=== PATIENT | male | born 1975 | race Caucasian/White ===

== ENCOUNTER → 2016-06-11 | Outpatient (CLI) | payer OTHER ==
[2016-06-11 08:54] LABS: BLOOD UREA NITROGEN 10 mg/dL (7-22); CALCIUM 10.1 mg/dL (8.7-10.7); CHOL/HDL RATIO 7.06 RATIO (0-4.0); EST GLOMERULAR FILTRATION > 60 (>60 ml/min/1.73m(2)); HDL CHOLESTEROL 31 mg/dL (40-150); SERUM ALBUMIN 4.5 g/dL (3.5-4.8); SERUM CHOLESTEROL 219 mg/dL (120-200)
== END ==
LOC: LAB 07:55
PROVIDERS: ATTEND Specialist
DX: I25.119 Atherosclerotic heart disease of native coronary artery with unspecified angina pectoris (principal); E78.2 Mixed hyperlipidemia
CPT/HCPCS: 80053; 80061

== ENCOUNTER → 2016-08-20 | Day surgery (SDC) | payer OTHER ==
[~2016-08-20] MED LIST: LIDOCAINE 2% VISCOUS(20 MG/1 ML) - 15 ML UD CUP PO ONE; LIDOCAINE W/ SODIUM BICARB 0.5 ML SYR ONE; Lactated Ringers 1,000 ML PRIMARY IV ONE
[2016-08-20 08:02] VITALS: RESP 16
--- NOTE | 2016-08-20 08:38 | GEN.OPNOTE ---
EGD Operative Note Surgery Date: 08/20/16 Preoperative Diagnosis: Chronic GERD. Dysphagia. Postoperative Diagnosis: Chronic GERD. Dysphagia. Distal esophageal inflammation and ulceration. Procedure: Esophagogastroduodenoscopy with biopsy. Surgeon: Eloy Mondragon MD Anesthesia Provider: Maryanne Lindsay CRNA Anesthesia Type: MAC Indications: Patient with chronic reflux and dysphagia. Proceed with upper endoscopy with biopsies and possible dilation. Findings: Esophagus: [Normal] GE Junction : [Inflammatory changes and ulceration] Fundus : [Normal] Body : [Normal] Prepyloric : [Mild erythema] Small Intestine : [Normal] A lubricated flexible upper endoscope was inserted and passed through the esophagus and stomach into the duodenum. The duodenum and duodenal bulb were unremarkable. The pyloric channel was patent. There is some erythema in the antrum. Antral biopsies were taken. Hemostasis was assured. The scope was retroflexed. The remainder of the gastric mucosa was unremarkable. The scope was straightened. Air was aspirated. The scope was withdrawn to the distal esophagus. The Z line was irregular with inflammatory changes. There is an ulceration above the Z line. Multiple biopsies were taken. Hemostasis was assured. The scope was withdrawn and replaced visualizing the entire esophagus. There were no strictures. Nothing needed dilation. I believe his dysphagia is all secondary to GE junction inflammation. The scope was brought through the hypopharynx under suction completing the procedure. The patient tolerated the procedure well without complication. He was taken to outpatient surgery in stable condition. We will call the biopsy results when available. We'll start patient on pantoprazole 40 mg by mouth daily in the interval. Estimated Blood Loss (mL): 2 Fluids: 800 mL of crystalloid. Pathology: Antral and distal esophageal biopsies. Complications: None.
[2016-08-20 09:16] VITALS: TEMP 97.2
== END ==
LOC: SDSC 07:15
PROVIDERS: ATTEND Surgery
DX: R13.10 Dysphagia, unspecified (principal); K21.9 Gastro-esophageal reflux disease without esophagitis; K22.10 Ulcer of esophagus without bleeding
CPT/HCPCS: 43239; J2704; J7120

== ENCOUNTER 2017-07-01 10:50 | Observation (INO) ==
[2017-07-01] MEDS ORDERED: ASPIRIN 81 MG (BABY) CHEWABLE TABLET PO ONE (10:54)
[2017-07-01] MEDS ORDERED: Sodium Chloride 0.9% 1,000 ML PRIMARY IV ONE (10:54)
--- NOTE | 2017-07-01 10:55 | PDOC ---
Chest Pain HPI - General Chief Complaint: Chest Pain Stated Complaint: chest pain Date Seen by Provider: 07/01/17 Time Seen by Provider: 10:50 Source: Patient Exam Limitations: POSITIVE: No limitations Treatment Prior to Arrival: REPORTS: None Nurse's Notes Reviewed & Considered: Yes - History of Present Illness Initial Comments: The patient is a 42-year-old male who presents to the emergency department with chest pain. 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 He is rating his pain currently about a 6 out of 10. He has some associated lightheadedness however denies increasing shortness of breath, nausea or vomiting or palpitation. He does have a known history of coronary artery disease and had a stent placed in the LAD in 2010. 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 He continues to smoke approximately half a pack of cigarettes per day. He is also treated for hypertension and hyperlipidemia. - Patient Home Medications Home Medications: Home Medications Aspirin 81 mg PO DAILY tab 07/10/15 Amlodipine Besylate 1 tab PO DAILY #30 tab 08/07/16 Atorvastatin Calcium [Lipitor] 1 tab PO QHS #30 tab 08/07/16 Bupropion HCl [Wellbutrin Xl] 1 tab PO DAILY #30 tab 08/07/16 Fenofibrate [Tricor] 145 mg PO DAILY #30 tab 08/07/16 Krill/Om-3/Dha/Epa/Phospho/Ast [Megared Boyd-3 Krill Oil Sfgl] 1 ea PO QD #30 cap 08/07/16 Lisinopril/Hydrochlorothiazide [Lisinopril-Hctz 10-12.5 Mg Tab] 1 tab PO DAILY # 30 tab 08/07/16 Nebivolol HCl [Bystolic] 5 mg PO DAILY #30 tab 08/07/16 Nitroglycerin 0.4 mg SL PRN #25 tab 08/07/16 Pantoprazole Sodium 40 mg PO DAILY #90 tab 08/20/16 - Patient Allergies Allergies/Adverse Reactions: Allergies 3 Allergy/AdvReac Type Severity Reaction Status Date / Time diazepam [From Valium] AdvReac Intermediate Rash Verified 07/01/17 11:04 Past Medical History - heen HEENT History: Denies History Cardiovascular History: Hypertension, Previous MD, Hyperlipidemia Respiratory History: Sleep Apnea Gastrointestinal History: GERD, Other (please comment) Additional Gastrointestinal History: double hernia repair. appy Genitourinary History: Denies History Endocrine History: Denies History Musculoskeletal History: Back Pain Prosthesis or Implant: No (STENT) Neurological History: Denies History Blood Disorders: Denies History Psychiatric History: Depression History of Sexually Transmitted Diseases: No Cancer History: Denies History History of MDRO: No Alcohol Use: None In the Past 12 Months, Have Used or Abuse Any Substance: None Previous Surgical History: Yes Type / Date of Surgery: CORONARY STENT 2010/ CORONARY ANGIOGRAM 07/02. Double hernia repair. appy Anesthesia Reactions: No Malignant Hyperthermia: No Significant Family History: Heart disease, COPD, Hypertension Past Medical History Reviewed: Reviewed - No Changes ROS - Limitations ROS Limitations: No Limitations Constitution: DENIES: Chills, Fever Cardiovascular: REPORTS: Chest Pain. DENIES: Heart Racing, Heart Palpitations, Edema Respiratory: DENIES: Shortness Of Breath Neurological: REPORTS: Dizziness. DENIES: Numbness, Fainting, Weakness Gastrointestinal: DENIES: Nausea, Vomitting Endocrine: REPORTS: Fatigue Musculoskeletal: REPORTS: Denies MS Symptoms. DENIES: Lower Extremity Swelling Eyes: REPORTS: Denies Symptoms ENT: REPORTS: Denies Symptoms Skin: DENIES: Rash Chest Pain PE - General Appearance General Appearance: REPORTS: Alert, Cooperative, No Acute Distress - HEENT HEENT: POSITIVE: Head Inspection Nml, Eyes Inspection Nml, Ears Inspection Nml, Nose Inspection Nml, Oral/Dental Inspect. Nml - Neck Neck: REPORTS: Normal Inspection - Respiratory Respiratory: REPORTS: No Respiratory Distress, Breath Sounds Normal - Cardiovascular Cardiovascular: REPORTS: Regular Rate and Rhythm, Heart Sounds Normal - Abdomen Abdomen: Soft: (All Quadrants), Denies Tenderness: (All Quadrants), No Distention: (All Quadrants) - Skin Skin: REPORTS: Intact, No Rash - Extremities Extremity: Normal ROM: (All Extremities), Normal Inspection: (All Extremities) - Neurological / Psychological Neurological: POSITIVE: Oriented X3, Motor Normal, Sensation Normal Chest Pain Progress - Results Reviewed by me Xrays/CTs/US Reviewed by me: Yes Radiology Findings: Chest x-ray shows normal heart size and normal lung shah. Lab Results Reviewed by Me: Yes CBC and BMP: 07/01/17 11:00 07/01/17 11:00 EKG Interpretation:: POSITIVE: Normal Sinus Rhythm, Normal Rate, Normal QRS, Normal ST/T - Patient's Progress MDM / ED Course: EKG done shortly after arrival shows normal sinus rhythm with no acute ST segment or T-wave changes. Vital signs are unremarkable on arrival. His pain on arrival was approximately 6 out of 10. He did receive aspirin per chest pain protocol as well as sublingual nitroglycerin. After 3 doses of sublingual nitroglycerin his pain had come down to about a 4. He had headache from the nitroglycerin. He was given Tylenol thousand milligrams by mouth as well as Ativan 1 mg IV. He had some further improvement in pain and was feeling better. His initial blood work shows a normal d-dimer, normal troponin, chest x -ray is normal. The patient does have a known history of coronary artery disease as well as multiple risk factors including continuation of smoking. The patient is discussed with Dr. Rodriguez and he has agreed to admit the patient for further evaluation. - Consult Counseled: POSITIVE: Patient, Family, RE: Lab Results, RE: Radiology Results, RE : DX Patient Care Time - Estimated PCT Patient Care Time (In Minutes): 25 Vital Signs - Recent Vital Signs Vital Signs: Vital Signs (Last 8 hours) Temp Pulse Pulse Resp BP Pulse Ox 07/01/17 10:51 98.4 F 80 80 18 139/99 92 - VS Reviewed Vital Signs Reviewed: Yes Discharge Clinical Impression: Chest pain Discharge Disposition: Admit to Observation Condition: Fair Follow Up With: ANGELLA PRASAD [Primary Care Provider] -
--- NOTE | 2017-07-01 10:56 | EKG ---
[address] [address] Measurements Intervals [place] Rate: 78 P: 37 MI: 196 QRS: 71 QRSD: 98 T: 59 QT: 379 QTc: 412 Interpretive Statements SINUS RHYTHM Compared to ECG 01/15/2016 10:47:28 No significant changes Electronically Signed On 07-01-17 13:47:27 MDT by Delfino Carlos [email or web address]
[2017-07-01] MEDS: NITROGLYCERIN 0.4 MG SL TAB (BOTTLE OF 3) SL PRN ×3 (10:58→11:09)
[2017-07-01 11:04] LABS: BASOPHILS # (AUTO) 0.05 10*3/UL; BASOPHILS % (AUTO) 0.8 % (0-1); EOSINOPHILS # (AUTO) 0.25 10*3/UL; Hematocrit [HCT] 49.2 % (42.0-52.0); LYMPHOCYTES # (AUTO) 1.72 10*3/uL; MEAN CORPUSCULAR HEMOGLOBIN 30.4 PG (27-31); MEAN CORPUSCULAR HGB CONC 34.6 g/dL (33-37); MEAN PLATELET VOLUME 11.1 FL (7.4-12.2); MONOCYTES # (AUTO) 0.49 10*3/UL (0.3-0.8); MONOCYTES % (AUTO) 7.8 % (5-15); NEUTROPHILS # (AUTO) 3.73 10*3/UL; NEUTROPHILS % (AUTO) 59.3 % (50-80); RED BLOOD COUNT 5.59 10^6/uL (4.70-6.10)
[2017-07-01 11:07] LABS: PLATELET MORPHOLOGY COMMENT NORMAL MORPHOLOGY (NORM); RBC MORPHOLOGY COMMENT NORMAL MORPHOLOGY (NORM); WBC MORPHOLOGY COMMENT NORMAL MORPHOLOGY (NORM)
[2017-07-01] MEDS ORDERED: ACETAMINOPHEN 500 MG TABLET PO ONE (11:11)
[2017-07-01] MEDS ORDERED: LORazepam 2 MG/1 ML VIAL IVP ONE (11:12)
[2017-07-01 11:20] LABS: BLOOD UREA NITROGEN 11 mg/dL (7-22); BUN/CREATININE RATIO 13.75 (6-20); LIPASE 67 IU/L (23-300); SERUM ALBUMIN 4.8 g/dL (3.5-4.8)
--- NOTE | 2017-07-01 11:43 | DI ---
AP CHEST X-RAY, 07/01/2017 10:54 AM : Clinical History: Chest pain. Previous Exam: 11/26/2015. There is no acute soft tissue or bony abnormality. Heart size is normal. There is no acute infiltrate or effusion. There is some discoid atelectasis in the left costophrenic angle. Mediastinal structure s are normal. There are no pulmonary nodules. Reading: Normal chest x-ray. There has been no significant interval change.
--- NOTE | 2017-07-01 12:05 | PDOC ---
HPI - History of Present Illness Date of Service: 07/01/17 Time of Service: 13:00 Chief Complaint: Chest pain that happened today History of Present Illness: This is a 42 years old male with medical history significant for history of coronary artery disease with previous NC in 2010 with previous LAD stent, hypertension, hypercholesterolemia and depression who came into the hospital because of chest pain. 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 He said he didn't have his nitroglycerin with him in. because of the pain he came into the ER. He rated his pain said was 6 out of 10 initially. He came into the ER was given nitroglycerin, aspirin addition to Ativan and that helped the pain. He was admitted for further investigations. Currently he is denying chest pain. He said the last time he took any of his medication was a week ago. There is no clear explanation for why he is not taking his medicines but he said he forgets. He was down in [place] helping his sister he said he probably would take his medication every other day. Past Medical History Medical History: 1. Coronary artery disease with previous NC in 2010 had stents to the LAD. 2. Hypertension. 3. Hyperlipidemia. 4. Depression. 5. Had angiogram June 2016 which showed the patent proximal to mid left anterior descending coronary artery stents with no significant restenosis. No significant other coronary artery abnormalities. Only a borderline 60% ostial to proximal stenosis observed in a small to moderate diagonal branch which is doing for medical management. 6. A nuclear stress test was done in November of 2015, showed normal left ventricular chamber size with an ejection fraction of 66-70%. There were fixed defects in the anteroapical and septal basilar segment with normal wall motion in those areas and dense coronary calcification in the proximal half of the left anterior descending coronary artery. Surgical History: 1. History of bilateral hernia surgery. 2. Appendectomy Pertinent Family History: Family history of coronary artery disease in his grandparents Past Social History: He continued to smoke he said probably 5 cigarettes a day he started smoking at age 18, doesn't drink nor drugs. Lives with his mom in [place]. He said he was down in [facility] helping his sister for about 10 months. He wasn't taking his medication as prescribed maybe every other day. He said he forgets to take his pills. Tobacco Use: Current Every Day Smoker In the Past 12 Months, Have Used or Abuse Any of the Following Substance: None Alcohol Use: None Medication / Allergies Home Medications: Home Medications 3 Medication Instructions Recorded Confirmed Type Aspirin 81 mg PO DAILY tab 07/10/15 07/01/17 History Amlodipine Besylate 1 tab PO DAILY #30 tab 08/07/16 07/01/17 Rx Atorvastatin Calcium [Lipitor] 1 tab PO QHS #30 tab 08/07/16 07/01/17 Rx Bupropion HCl [Wellbutrin Xl] 1 tab PO DAILY #30 tab 08/07/16 07/01/17 Rx Fenofibrate [Tricor] 145 mg PO DAILY #30 tab 08/07/16 07/01/17 Rx Krill/Om-3/Dha/Epa/Phospho/Ast 1 ea PO QD #30 cap 08/07/16 07/01/17 Rx [Megared Ransom-3 Krill Oil Sfgl] Lisinopril/Hydrochlorothiazide 1 tab PO DAILY #30 tab 08/07/16 07/01/17 Rx [Lisinopril-Hctz 10-12.5 Mg Tab] Nebivolol HCl [Bystolic] 5 mg PO DAILY #30 tab 08/07/16 07/01/17 Rx Nitroglycerin 0.4 mg SL PRN #25 tab 08/07/16 07/01/17 Rx Pantoprazole Sodium 40 mg PO DAILY #90 tab 08/20/16 07/01/17 Rx Allergies/Adverse Reactions: Allergies 3 Allergy/AdvReac Type Severity Reaction Status Date / Time diazepam [From Valium] AdvReac Intermediate Rash Verified 07/01/17 11:04 Review of Systems - Review of Systems All Systems: Reviewed & No Additional Complaints Except as Stated Exam - Vitals Vital Signs: Vital Signs Temperature 98.4 F Temperature Source Temporal Artery Scan Pulse Rate [Telemetry] 80 Pulse Rate 80 Respiratory Rate 7 Blood Pressure [Right Arm] 139/99 Blood Pressure 117/85 Pulse Ox 92 Oxygen Delivery Method Room Air Height 5 ft 9 in Weight 203 lb - General General Appearance: No Acute Distress, Cooperative Additional General Exam Details: slow to respond to questions - Head Head Exam: Normal Inspection - Eye Eye Exam: POSITIVE: Normal Appearance - ENT ENT Exam: POSITIVE: Normal Exam - Neck Neck Exam: Normal Inspection - Respiratory Respiratory Exam: POSITIVE: Clear to Auscultation - Bilaterally - Cardiovascular Cardiovascular Exam: POSITIVE: RRR - GI/Abdominal GI/Abdominal Exam: POSITIVE: Normal Bowel Sounds, Non Tender, Non Distended, Soft, No Organomegaly - Rectal Rectal Exam: POSITIVE: Deferred - External Exam: POSITIVE: Deferred Exam: POSITIVE: Deferred - Extremities Extremities Exam: POSITIVE: Normal Inspection - Back Back Exam: POSITIVE: Normal Inspection - Neurological Neurological Exam: POSITIVE: Alert, Oriented x 3, CN II-XII Intact, Speech Intact / Clear, Moves All Extremities Equally - Psychiatric Psychiatric Exam: POSITIVE: Flat Affect - Integumentary Integumentary Exam: POSITIVE: Normal Color Results - Labs CBC and BMP: 07/01/17 11:00 07/01/17 11:00 - EKG Data -: EKG Interpreted by Me Rate: Normal EKG Shows Normal: Sinus Rhythm (EKG does not show significant EKG changes) - Imaging Status: Report Reviewed by Me (chest x ray Normal chest x-ray. There has been no significant interval change.) Assessment and Plan - Patient Problems (1) Chest pain Current Visit: Yes Status: Acute Comment: Atypical chest pain. Cardiac versus noncardiac. Patient is under a lot of stress in addition he is not taking his medications as prescribed. I think will repeat his enzymes and order a stress test in the morning. Code(s): R07.9 - Chest pain, unspecified (2) Hypertension Current Visit: Yes Status: Acute Comment: He is normally on bystolic, HCTZ/lisinopril, and amlodipine. I think will hold amlodipine will continue the rest. Code(s): I10 - Essential (primary) hypertension (3) Hypercholesterolemia Current Visit: Yes Status: Acute Comment: Continue same medications Code(s): E78.00 - Pure hypercholesterolemia, unspecified (4) Depression Current Visit: Yes Status: Acute Comment: We'll continue his previous med. His mother said to the logistics planner that she is concerned about his depression so we'll ask for solutions for life evaluation. Code(s): F32.9 - Major depressive disorder, single episode, unspecified (5) Elevated LFTs Current Visit: Yes Status: Acute Comment: LFTs are somewhat elevated we'll repeat it tomorrow. Code(s): R79.89 - Other specified abnormal findings of blood chemistry
[2017-07-01] MEDS ORDERED: CALCIUM CARBONATE 500 MG (TUMS) CHEWABLE TABLET PO PRN (12:55)
[2017-07-01] MEDS ORDERED: LIDOCAINE W/ SODIUM BICARB 0.5 ML SYR SUBD PRN (12:55)
[2017-07-01] MEDS ORDERED: ATORVASTATIN 40 MG TABLET PO SCH (21:00)
[2017-07-02 05:31] LABS: BLOOD UREA NITROGEN 9 mg/dL (7-22); BUN/CREATININE RATIO 12.85 (6-20); SERUM ALBUMIN 4.2 g/dL (3.5-4.8)
[2017-07-02 07:21] VITALS: O2SAT 92
[2017-07-02] MEDS ORDERED: PANTOPRAZOLE 40 MG TABLET PO SCH (09:00)
[2017-07-02] MEDS ORDERED: [UNRECOGNIZED DRUG - OTHER] PO SCH (09:00)
[2017-07-02] MEDS ORDERED: HYDROCHLOROTHIAZIDE 12.5 MG CAPSULE PO SCH (09:00)
[2017-07-02] MEDS ORDERED: ASPIRIN 81 MG (BABY) CHEWABLE TABLET PO SCH (09:00)
[2017-07-02] MEDS ORDERED: buPROPion XL Tab 150 MG TAB PO SCH (09:00)
[2017-07-02] MEDS ORDERED: FENOFIBRATE 145 MG TABLET PO SCH (09:00)
[2017-07-02] MEDS ORDERED: NEBIVOLOL HCL 5 MG TABLET PO SCH (09:00)
[2017-07-02] MEDS ORDERED: LISINOPRIL PO SCH (09:00)
[2017-07-02] MEDS ORDERED: HYDROCHLOROTHIAZIDE PO SCH (09:00)
[2017-07-02] MEDS ORDERED: LISINOPRIL 10 MG TABLET PO SCH (09:00)
--- NOTE | 2017-07-02 10:15 | STRESSTEST ---
[facility] Interpretive Statements 42 yo man with hx of CAD comes in with chest pain. no acute changes on stress portion will await imaging [email or web address]
--- NOTE | 2017-07-02 10:19 | DCSUMMARY ---
Hospitalization Summary Hospital Course: Final Discharge Diagnosis: Current Visit Problems Problem Status Onset Code Chest pain Acute R07.9 Hypertension Acute I10 Hypercholesterolemia Acute E78.00 Depression Acute F32.9 Elevated LFTs Acute R79.89 Diagnostic Data, Laboratory Data, and Procedures of Signifigance: CBC and BMP 07/01/17 11:00 07/02/17 04:32 History and Physical pertinent to Admission: Course of Hospitalization: This very nice 42-year-old gentleman with a past medical history of coronary artery disease admitted with chest pain which is now resolved we did a stress portion of his stress test this morning patient has some abdominal discomfort which resolved with caffeine and chest pain and has never come back since that he was initially admitted his troponins remained negative [address] Price radiology he verbally stated that the stress test was negative I will be discharging the patient home.. Also patient's mother was concerned about his depression. She was evaluated by [employer] patient was not suicidal as per notes the recall with her going to come to see him today again but they said that they could follow up with them at 6 PM patient is already on an antidepressant. I called Megan campos alert no she will refer this to Natalya' s nurse On the date of discharge, the patient was examined: Gen.: No acute distress, alert, nontoxic Heart: Regular rate and rhythm, no murmurs, clicks, gallops, or rubs Lungs: Clear to auscultation bilaterally, breathing is nonlabored Abdomen/GI: Normal tones on auscultation, soft, nontender, nondistended Musculoskeletal/extremities: No clubbing, cyanosis, or edema Vitals reviewed and are listed below Vital Signs (24 hrs) Temp Pulse Pulse Pulse Resp BP Pulse Ox 07/02/17 16:22 98.4 F 56 L 18 114/70 92 07/02/17 15:00 63 07/02/17 10:58 106 H 07/02/17 10:56 97.6 F 100 18 155/86 92 07/02/17 08:15 51 L 07/02/17 07:20 97 F 49 L 17 114/70 92 07/02/17 07:00 47 L 07/02/17 04:29 97.4 F 57 L 20 126/77 93 07/02/17 03:00 53 L 07/02/17 00:47 97.4 F 69 18 123/72 94 07/01/17 23:00 72 07/01/17 20:04 97.6 F 66 20 140/86 91 07/01/17 19:00 91 07/01/17 16:56 97.7 F 84 18 131/81 90 Assessment and Plan: 1. As per discharge assessments above 2. Disposition: 3. Condition on discharge, stable and improved. 4. Diet: regular diet 5. Activities: resume normal activities 6. Follow-Up: 1. PCP 2. 7. Medications at the Time of Discharge: Home Medications 3 Medication Instructions Recorded Confirmed Type Aspirin 81 mg PO DAILY tab 07/10/15 07/01/17 History Amlodipine Besylate 1 tab PO DAILY #30 tab 08/07/16 07/01/17 Rx Atorvastatin Calcium [Lipitor] 1 tab PO QHS #30 tab 08/07/16 07/01/17 Rx Bupropion HCl [Wellbutrin Xl] 1 tab PO DAILY #30 tab 08/07/16 07/01/17 Rx Fenofibrate [Tricor] 145 mg PO DAILY #30 tab 08/07/16 07/01/17 Rx Krill/Om-3/Dha/Epa/Phospho/Ast 1 ea PO QD #30 cap 08/07/16 07/01/17 Rx [Megared [place]-3 Krill Oil Sfgl] Lisinopril/Hydrochlorothiazide 1 tab PO DAILY #30 tab 08/07/16 07/01/17 Rx [Lisinopril-Hctz 10-12.5 mg Tab] Nebivolol HCl [Bystolic] 5 mg PO DAILY #30 tab 08/07/16 07/01/17 Rx Nitroglycerin 0.4 mg SL PRN #25 tab 08/07/16 07/01/17 Rx Pantoprazole Sodium 40 mg PO DAILY #90 tab 08/20/16 07/01/17 Rx 8. Time, care, counseling and coordination of care for this discharge is greater than 30 minutes. Exam - Vitals Vital Signs: Vital Signs Temperature 97 F Temperature Source Temporal Artery Scan Pulse Rate [Pulse Oximeter] 49 Pulse Rate [Apical] 51 Pulse Rate [Telemetry] 74 Pulse Rate 47 Respiratory Rate 17 Blood Pressure [Right Arm] 114/70 Blood Pressure 124/87 Pulse Ox 92 Oxygen Delivery Method Room Air Height 5 ft 9 in Weight 213 lb 9.6 oz
[2017-07-02 10:57] VITALS: RESP 18
[2017-07-02 16:24] VITALS: BP 114/70; TEMP 98.4
--- NOTE | 2017-07-02 17:47 | DI ---
2 DAY LEXISCAN STRESS & REST MYOCARDIAL PERFUSION SCANS, 07/01/2017-07/02/2017: Clinical History: Chest pain. Previous Exam: 11/30/2015. Monitoring Physician: Dr. Monica Rodriguez. Dose: Stress dose: 37 mCi on 07/02/2017. Rest dose: 37 mCi on 07/01/2016. Quantitative Analysis: [email or web address] program with low dose limited CT chest scan attenuation correctio n. Exam Quality: Excellent. Rejected Beats: Stress = 0%; Rest = 0%. HR: Stress = 57-67 b/m; Rest = 70-8 8 b/m. Left ventricular chamber sizes are normal at stress and rest. Transient ischemic dilatation ratio is 1.20 (normal Clay TID <= 1.22; normal Lexiscan TID <= 1.33). Stress LVEF: 69%; rest LVEF: 70%. The n on-attenuated scans show normal perfusion at stress and rest. The attenuated corrected scans show a s mall anteroapical fixed defect but this is probably more likely related to anatomic apical thinning r ather than a true apical infarct. All other lowe perfuse normally. Stress and rest wall motion and m yocardial thickening are normal. Limited CT scans of the heart calcifications or a stent in the middl e third of the LAD. There are no lung nodules or enlarged nodes. Readin. Normal stress and rest left ventricular chamber size. Transient ischemic dilatation ratio is 1.20 . 2. Normal stress and rest LVEF values of 69 % and 70 %, respectively. 3. There is a small anteroapical fixed defect on the attenuated corrected scans but this is felt to be more likely related to anatomic apical thinning rather than a true infarct. All other lowe perfus e normally on the attenuated corrected scans. Stress and rest perfusion is completely normal on the n on-attenuated study. 4. Normal stress and rest wall motion and myocardial thickening. 5. There are calcifications versus a stent located in the middle third of the LAD. There are no lung nodules or enlarged lymph nodes.
== END 2017-07-02 17:38 | disposition home or self-care (01) ==
LOC: MED/SURG 10:50 → ER 10:50
PROVIDERS: ADMIT Internal Medicine; ATTEND Internal Medicine